=== PATIENT | male | born 1940 | race Hispanic/Latino ===

== ENCOUNTER 2020-12-04 14:55 | Emergency (ER) | payer MEDICARE ==
--- NOTE | 2020-12-04 16:03 | Event Note ---
ED Screening Note Date of service: 12/04/20 Time: 16:01 ED Screening Note: 80-year-old male patient with history of kidney stones and pancreatitis presents to the emergency department with complaints of abdominal pain, nausea, and vomiting worsening today. Patient states he underwent a CT scan earlier in the week and was diagnosed with a nonobstructive kidney stone. However, today he developed nausea and vomiting, prompting him to come to the emergency department. Patient states he was hospitalized for pancreatitis approximately 6 months ago. His pain is primarily localized to the epigastric and periumbilical area. Endorses alcohol use. Symptoms are somewhat reminiscent of prior pa ncreatitis diagnosis. Tachycardic in triage. General: Awake, appropriately interactive, no acute distress. Neck: Supple. Full range of motion intact. Cardiovascular: Normal peripheral perfusion. Pulmonary: No respiratory distress. Patient is speaking normally without use of accessory muscles. Skin: No apparent rashes or lesions. Neurological: No facial asymmetry. Speech is clear. Follows commands. Patient is alert and oriented. Musculoskeletal: Moves all four extremities spontaneously with normal range of motion. Psych: Cooperative. Appropriate mood and affect. I have greeted and performed a focused rapid initial assessment of this patient. A comprehensive ED assessment and evaluation of the patient, analysis of all test results, and completion of the medical decision-making process will be conducted by additional ED providers. This initial assessment/diagnostic orders/clinical plan/treatment(s) is/are subject to change based on patients health status, clinical progression and re-assessment. Further treatment and workup at subsequent clinical provider's discretion. Patient/guardian urged not to elope from the ED as their condition may be serious if not clinically assesse d and managed.
[2020-12-04 17:13] LABS: Bacteria,Urine 1+ /HPF (Negative); Bilirubin,Urine SM (Negative); Blood,Urine NEG (Negative); Color,Urine Amber (Yellow); Hyaline Casts,Urine 13 /LPF; Mucus,Urine 3+ /HPF
[2020-12-04 17:42] LABS: Basophils % (Auto) 0.1 % (0.0-1.8); Hematocrit 49.6 % (35.5-45.6); Hemoglobin 16.9 gm/dl (11.8-15.2); Lymphocytes # (Auto) 0.5 K/mm3 (1.2-5.4); Lymphocytes % (Auto) 5.5 % (13.4-35.0); Mean Corpuscular HGB Conc 34 % (32-34); Mean Corpuscular Volume 94 fl (84-94); Monocytes # (Auto) 0.6 K/mm3 (0.0-0.8); Monocytes % (Auto) 6.3 % (0.0-7.3); Platelet Count 159 K/mm3 (140-440); Red Cell Distribution Width 13.8 % (13.2-15.2)
[2020-12-04 17:44] LABS: Ictotest,Urine Negative (Negative)
[2020-12-04 17:51] LABS: Albumin 4.4 g/dL (3.9-5); Calcium 9.6 mg/dL (8.4-10.2)
[2020-12-04] MEDS ORDERED: MORPHINE 4 MG/1 ML INJ IV ONE (20:41)
[2020-12-04] MEDS ORDERED: ONDANSETRON 4 MG/2 ML INJ IV ONE (20:41)
[2020-12-04] MEDS ORDERED: SODIUM CHLORIDE 0.9% 1000 ML 500 ML IV ONE (20:41)
--- NOTE | 2020-12-04 20:42 | Emergency Department Report ---
ED General Adult HPI - General Chief complaint: Nausea/Vomiting/Diarrhea Stated complaint: VOMITING PUI?: No Time Seen by Provider: 12/04/20 20:32 Source: patient, RN notes reviewed Mode of arrival: Ambulatory Limitations: No Limitations - History of Present Illness Initial comments: The patient was evaluated in the emergency department for symptoms described in the history of present illness. He/she was evaluated in the context of the global COVID-19 pandemic, which necessitated consideration that the patient might be at risk for infection with the virus that causes COVID-19. Institutional protocols and algorithms that pertain to the evaluation of patients at risk for COVID-19 are in a state of rapid change based on i nformation released by regulatory bodies including the CDC and federal and state organizations. These policies and algorithms were followed during the patient's care in the emergency department. Please note that these policies, procedures and recommendations changed on a rapid basis. This is an 80-year-old gentleman. He is not known to myself previously. He is visiting from [place]. He reports a history of pancreatitis. He presents to the ER today with a complaint of diffuse abdominal pain, nausea, vomiting. He also has a history of cholecystectomy the distant past. Also reports a history of renal colic. Presents to the ER today with a complaint of supraumbilical/infra epigastric abdominal pain, with nausea vomiting, malaise. He has received his Covid vaccinations. Denies headache, neck pain, chest pain, shortness of breath, Covid symptomatology, testicular pain and urinary symptoms. So far, his abdominal pain is diffuse, increases with palpation, and does not really have any relieving factors. No testicular pain at this time. -: Gradual, hour(s) Location: abdomen Radiation: non-radiation Quality: other Consistency: other Improves with: other Worsens with: other - Related Data Previous Rx's Medication Instructions Recorded Last Taken Type Metoclopramide [Reglan] 10 mg PO QID PRN #30 tablet 12/04/20 Unknown Rx Pantoprazole [Protonix] 40 mg PO QDAY #30 tablet 12/04/20 Unknown Rx Allergies Allergy/AdvReac Type Severity Reaction Status Date / Time No Known Allergies Allergy Unverified 12/04/20 15:08 ED Review of Systems ROS: Stated complaint: VOMITING Other details as noted in HPI Constitutional: malaise, other (Denies loss of taste and smell). denies: fever Eyes: denies: eye discharge ENT: denies: epistaxis Respiratory: denies: shortness of breath Cardiovascular: denies: chest pain Gastrointestinal: abdominal pain, nausea, vomiting Genitourinary: denies: testicular pain Musculoskeletal: denies: back pain Neurological: weakness Hematological/Lymphatic: denies: easy bleeding ED Past Medical Hx - Past Medical History Previous Medical History?: Yes Hx Hypertension: Yes - Surgical History Past Surgical History?: Yes Additional Surgical History: knee surgery, GB - Medications Home Medications: Home Medications Medication Instructions Recorded Confirmed Last Taken Type Metoclopramide [Reglan] 10 mg PO QID PRN #30 tablet 12/04/20 Unknown Rx Pantoprazole [Protonix] 40 mg PO QDAY #30 tablet 12/04/20 Unknown Rx ED Physical Exam - General Limitations: No Limitations General appearance: alert, anxious, in distress, obese - Head Head exam: Present: atraumatic, normocephalic - Eye Eye exam: Present: normal appearance, EOMI. Absent: nystagmus - ENT ENT exam: Present: normal exam, normal orophraynx, mucous membranes moist, normal external ear exam - Neck Neck exam: Present: normal inspection, full ROM. Absent: tenderness, meningismus - Respiratory Respiratory exam: Present: normal lung sounds bilaterally. Absent: respiratory distress, wheezes, rales, rhonchi, stridor, decreased breath sounds - Cardiovascular Cardiovascular Exam: Present: normal rhythm, tachycardia, normal heart sounds. Absent: bradycardia, irregular rhythm, systolic murmur, diastolic murmur, rubs, gallop - GI/Abdominal GI/Abdominal exam: Present: soft, tenderness. Absent: distended, guarding, rebound, rigid, pulsatile mass - Rectal Rectal exam: Present: deferred - Extremities Exam Extremities exam: Present: normal inspection, full ROM, other (2+ pulses noted in the bilateral upper and lower extremities. There is no palpable cord. negative Homans sign. Muscular compartments are soft. The pelvis is stable.). Absent: pedal edema, calf tenderness - Back Exam Back exam: Present: normal inspection, full ROM. Absent: tenderness, CVA tenderness (R), CVA tenderness (L), paraspinal tenderness, vertebral tenderness - Neurological Exam Neurological exam: Present: alert, normal gait, other (No facial droop. Tongue midline. Extraocular movements intact bilaterally. Facial sensation intact to light touch in V1, V2, V3 distribution bilaterally. 5 and a 5 strength in 4 extremities. Sensation intact to light touch in 4 extremities.). Absent: motor sensory deficit - Psychiatric Psychiatric exam: Present: anxious - Skin Skin exam: Present: warm, dry, intact, normal color. Absent: rash ED Course Vital Signs 12/04/20 12/04/20 15:11 22:58 Temperature 98.1 F 98.4 F Pulse Rate 100 H 75 Respiratory 24 16 Rate Blood Pressure 153/93 Blood Pressure 137/68 [Left] O2 Sat by Pulse 95 100 Oximetry - Reevaluation(s) Reevaluation #1: 12/04/20 22:32 Heart rate in the 90s at this time. Patient drinking ice water. He is speaking on the cell phone and in no acute distress. Belly soft on repeat examination. CT scan abdomen pelvis did not demonstrate any emergent surgical condition, gastritis is suggested. At this point time, given history of sporadic alcohol use, and history of pancreatitis, I suspect alcohol induced gastritis, which is likely causing nausea and vomiting, and abdominal wall pain. Counseled patient to avoid consumption of Motrin, ibuprofen, Naprosyn, Aleve, a lcohol, heavy and spicy foods. Counseled patient to avoid consumption of alcohol. Counseled patient that he may follow-up with an outpatient GI physician. He states "I have already done this." Nevertheless, he endorses feeling improved, and is endorsing readiness for discharge. Elevated lactic acid is likely a type B lactic acidosis. 12/04/20 22:56 No active vomiting. Patient on cell phone. Patient has asked for a letter to be cleared for leisurely/recreational flight. I have instructed the patient that in the emergency room, we will rule out an emergent medical condition. However, I have informed the patient that we do not do medical clearance for flights and or for aviation pursuits. Patient is instructed that he may follow- up at an urgent care, primary care doctor's office, or at a local outpatient facility. During this conversation, nurse Denny Avalos is present. 12/05/20 00:23 Final reevaluation. Lactic acid cleared. Patient drinking without difficulty. Belly soft on repeat exam. He is speaking on his cell phone in no acute distress. Suitable for discharge with outpatient follow-up. ED Medical Decision Making - Lab Data Result diagrams: 12/04/20 16:52 12/04/20 16:52 Vital Signs 12/04/20 15:11 Temperature 98.1 F Pulse Rate 100 H Respiratory 24 Rate Blood Pressure 153/93 O2 Sat by Pulse 95 Oximetry Lab Results 12/04/20 12/04/20 12/04/20 Range/Units 16:29 16:52 16:52 WBC 9.8 (4.5-11.0) K/mm3 RBC 5.30 H (3.65-5.03) M/mm3 Hgb 16.9 H (11.8-15.2) gm/dl Hct 49.6 H (35.5-45.6) % MCV 94 (84-94) fl MCH 32 (28-32) pg MCHC 34 (32-34) % RDW 13.8 (13.2-15.2) % Plt Count 159 (140-440) K/mm3 Lymph % (Auto) 5.5 L (13.4-35.0) % [place] % (Auto) 6.3 (0.0-7.3) % Eos % (Auto) 0.0 (0.0-4.3) % Baso % (Auto) 0.1 (0.0-1.8) % Lymph # (Auto) 0.5 L (1.2-5.4) K/mm3 [place] # (Auto) 0.6 (0.0-0.8) K/mm3 Eos # (Auto) 0.0 (0.0-0.4) K/mm3 Baso # (Auto) 0.0 (0.0-0.1) K/mm3 Seg Neutrophils % 88.1 H (40.0-70.0) % Seg Neutrophils # 8.6 H (1.8-7.7) K/mm3 Sodium 136 L (137-145) mmol/L Potassium 4.5 (3.6-5.0) mmol/L Chloride 97.3 L (98-107) mmol/L Carbon Dioxide 25 (22-30) mmol/L Anion Gap 18 mmol/L BUN 31 H (9-20) mg/dL Creatinine 1.3 (0.8-1.3) mg/dL Estimated GFR 53 ml/min BUN/Creatinine Ratio 24 % Glucose 177 H (75-100) mg/dL Calcium 9.6 (8.4-10.2) mg/dL Magnesium 1.70 (1.7-2.3) mg/dL Total Bilirubin 1.30 H (0.1-1.2) mg/dL AST 51 H (5-40) units/L ALT 75 H (7-56) units/L Alkaline Phosphatase 80 (35-129) units/L Total Creatine Kinase (55-170) units/L Troponin T (0.00-0.029) ng/mL Total Protein 6.9 (6.3-8.2) g/dL Albumin 4.4 (3.9-5) g/dL Albumin/Globulin Ratio 1.8 % Lipase 14 (13-60) units/L Urine Color [place] (Yellow) Urine Turbidity Cloudy (Clear) Urine pH 5.0 (5.0-7.0) Ur Specific [place] 1.025 (1.003-1.030) Urine Protein 30 mg/dl (Negative) mg/dL Urine Glucose (UA) Neg (Negative) mg/dL Urine Ketones Neg (Negative) mg/dL Urine Blood Neg (Negative) Urine Nitrite Neg (Negative) Urine Bilirubin Sm (Negative) Urine Ictotest Negative (Negative) Urine Urobilinogen 4.0 (<2.0) mg/dL Ur Leukocyte Esterase Neg (Negative) Urine WBC (Auto) 6.0 (0.0-6.0) /HPF Urine RBC (Auto) 6.0 (0.0-6.0) /HPF U Epithel Cells (Auto) 1.0 (0-13.0) /HPF Urine Bacteria (Auto) 1+ (Negative) /HPF Hyaline Casts 13 /LPF Urine Mucus 3+ /HPF Plasma/Serum Alcohol (0-0.07) % 12/04/20 12/04/20 Range/Units 16:52 21:00 WBC (4.5-11.0) K/mm3 RBC (3.65-5.03) M/mm3 Hgb (11.8-15.2) gm/dl Hct (35.5-45.6) % MCV (84-94) fl MCH (28-32) pg MCHC (32-34) % RDW (13.2-15.2) % Plt Count (140-440) K/mm3 Lymph % (Auto) (13.4-35.0) % [place] % (Auto) (0.0-7.3) % Eos % (Auto) (0.0-4.3) % Baso % (Auto) (0.0-1.8) % Lymph # (Auto) (1.2-5.4) K/mm3 [place] # (Auto) (0.0-0.8) K/mm3 Eos # (Auto) (0.0-0.4) K/mm3 Baso # (Auto) (0.0-0.1) K/mm3 Seg Neutrophils % (40.0-70.0) % Seg Neutrophils # (1.8-7.7) K/mm3 Sodium (137-145) mmol/L Potassium (3.6-5.0) mmol/L Chloride (98-107) mmol/L Carbon Dioxide (22-30) mmol/L Anion Gap mmol/L BUN (9-20) mg/dL Creatinine (0.8-1.3) mg/dL Estimated GFR ml/min BUN/Creatinine Ratio % Glucose (75-100) mg/dL Calcium (8.4-10.2) mg/dL Magnesium 1.80 (1.7-2.3) mg/dL Total Bilirubin (0.1-1.2) mg/dL AST (5-40) units/L ALT (7-56) units/L Alkaline Phosphatase (35-129) units/L Total Creatine Kinase 144 (55-170) units/L Troponin T < 0.010 (0.00-0.029) ng/mL Total Protein (6.3-8.2) g/dL Albumin (3.9-5) g/dL Albumin/Globulin Ratio % Lipase (13-60) units/L Urine Color (Yellow) Urine Turbidity (Clear) Urine pH (5.0-7.0) Ur Specific [place] (1.003-1.030) Urine Protein (Negative) mg/dL Urine Glucose (UA) (Negative) mg/dL Urine Ketones (Negative) mg/dL Urine Blood (Negative) Urine Nitrite (Negative) Urine Bilirubin (Negative) Urine Ictotest (Negative) Urine Urobilinogen (<2.0) mg/dL Ur Leukocyte Esterase (Negative) Urine WBC (Auto) (0.0-6.0) /HPF Urine RBC (Auto) (0.0-6.0) /HPF U Epithel Cells (Auto) (0-13.0) /HPF Urine Bacteria (Auto) (Negative) /HPF Hyaline Casts /LPF Urine Mucus /HPF Plasma/Serum Alcohol < 0.01 (0-0.07) % - EKG Data -: EKG Interpreted by Ak EKG shows normal: sinus rhythm Rate: normal - EKG Data When compared to previous EKG there are: previous EKG unavailable 12/04/20 21:58 No prior EKG available for comparison. EKG interpreted at 20: 50 Sinus rhythm, 87 bpm, normal P wave axis, left axis deviation, left anterior fascicular block, left ventricular hypertrophy, motion artifact, QTC 446 ms, first-degree AV block, nonspecific interventricular conduction delay, abnormal EKG, not a STEMI, no prior for comparison - Radiology Data Radiology results: pending, report reviewed, [place] [address] Cat Scan Report Signed Patient: PRECIOUS ALCARAZ MR#: [id number] : 1940 Acct:[id number] Age/Sex: 80 / M ADM Date: 12/04/20 Loc: ED Attending Dr: Ordering Physician: MARIE BETHEA MD Date of Service: 12/04/20 Procedure(s): CT angio abdomen pelvis Accession Number(s): [id number] cc: MARIE BETHEA MD CTA ABDOMEN AND PELVIS WITHOUT AND WITH IV CONTRAST INDICATION: acute abd pain n/v. TECHNIQUE: Axial CT images were obtained through the abdomen and pelvis before and after after injection of IV contrast. 3 plane MIP reconstructions were produced. All CT scans at this location are performed using CT dose reduction for ALARA by means of automated exposure control. COMPARISON: None available. FINDINGS: Aorta: Mild atherosclerotic calcification. Caliber is normal. No acute abnormality. Renal arteries: No acute abnormality. There are 2 left renal arteries arising from the aorta. No significant atherosclerotic calcification. No acute abnormality. Celiac artery: No acute abnormality. Superior mesenteric artery: No acute abnormality. Inferior mesenteric artery: No acute abnormality. Right iliac arteries: No acute abnormality. Left iliac arteries: No acute abnormality. Additional Findings: There is mild hepatic stea tosis. There are couple punctate nonobstructing calyceal stones in the kidneys. No acute solid organ abnormality is seen. There is mild stranding around the distal stomach/duodenal bulb. Upper GI tract is otherwise unremarkable. No colonic inflammation is seen. Bladder is unremarkable. No free fluid or adenopathy. Skeletal Structures: No acute osseous abnormality. IMPRESSION: 1. No acute/significant vascular findings. 2. There is mild stranding around the distal stomach and duodenum which could be seen in the setting of gastritis or duodenitis. Peptic ulcer disease is also a consideration. 3. Additional, incidental findings as above. Signer Name: Elvin Toribio MD Signed: 12/04/2020 9:52 PM Workstation Name: [id number] Transcribed By: SW Dictated By: Elvin Toribio MD Electronically Authenticated By: Elvin Toribio MD Signed Date/Time: 12/04/202151 DD/ 47 Critical care attestation.: If time is entered above; I have spent that time in minutes in the direct care of this critically ill patient, excluding procedure time. ED Disposition Clinical Impression: Abdominal pain Qualifiers: Abdominal location: unspecified location Qualified Code(s): R10.9 - Unspecified abdominal pain Disposition: DC-01 TO HOME OR SELFCARE Is pt being admited?: No Does the pt Need Aspirin: No Condition: Stable Instructions: Gastritis, Adult Additional Instructions: As we discussed, patient does not appear to have an emergent medical condition at this time which would preclude discharge, and which should not prevent him from following up with an outpatient primary care doctor and/or internist. We suspect that patient symptoms are likely coming from presumed alcoholic gastritis, or undifferentiated gastritis. We recommend the patient abstain/avoid consumption of alcohol, tobacco, smoke products, heavy and spicy foods, medications such as Motrin, ibuprofen, Naprosyn, Aleve, and aspirin. Please do not take metformin medication for the next 2 days, if patient takes this medication. Please take the pain medication, nausea medication as needed and directed. Please follow-up with an outpatient primary care doctor or internist within the next 5 to 7 days for repeat checkup/evaluation. Patient may alternatively follow-up at a local outpatient urgent care center, or outpatient primary care center, if he needs/requires a letter for flight clearance. For the patient's convenience, Dr. Perez is a local internist. Dr. Francia Paula is a local primary care doctor. Patient had laboratory studies and CT scan today which did not demonstrate an emergent medical condition. However, nonemergent incidental abnormal findings were noted, and a primary care doctor or internist should contact our medical records department to obtain copies of diagnostic laboratory studies and radiology studies, to follow-up on nonemergent incidental abnormal findings. Please return to the emergency room right away with new pain, worsened pain, migration of pain, projectile vomiting, change in mental status, confusion, inability to tolerate liquid feeds, new, worsened or different symptoms not present on the initial emergency room evaluation. Prescriptions: Pantoprazole [Protonix] 40 mg PO QDAY #30 tablet Metoclopramide [Reglan] 10 mg PO QID PRN #30 tablet PRN Reason: Nausea Referrals: CRISTINA PAULA MD [Staff Physician] - 3-5 Days [facility] [Provider Group] - 3-5 Days
--- NOTE | 2020-12-04 21:57 | Cat Scan Report ---
CTA ABDOMEN AND PELVIS WITHOUT AND WITH IV CONTRAST INDICATION: acute abd pain n/v. TECHNIQUE: Axial CT images were obtained through the abdomen and pelvis before and after after injection of IV c ontrast. 3 plane MIP reconstructions were produced. All CT scans at this location are performed using CT dose reduction for ALARA by means of automated exposure control. COMPARISON: None available. FINDINGS: Aorta: Mild atherosclerotic calcification. Caliber is normal. No acute abnormality. Renal arteries: No acute abnormality. There are 2 left renal arteries arising from the aorta. No sign ificant atherosclerotic calcification. No acute abnormality. Celiac artery: No acute abnormality. Superior mesenteric artery: No acute abnormality. Inferior mesenteric artery: No acute abnormality. Right iliac arteries: No acute abnormality. Left iliac arteries: No acute abnormality. Additional Findings: There is mild hepatic steatosis. There are couple punctate nonobstructing calyce al stones in the kidneys. No acute solid organ abnormality is seen. There is mild stranding around th e distal stomach/duodenal bulb. Upper GI tract is otherwise unremarkable. No colonic inflammation is seen. Bladder is unremarkable. No free fluid or adenopathy. Skeletal Structures: No acute osseous abnormality. IMPRESSION: 1. No acute/significant vascular findings. 2. There is mild stranding around the distal stomach and duodenum which could be seen in the setting of gastritis or duodenitis. Peptic ulcer disease is also a consideration. 3. Additional, incidental findings as above. Signer Name: Elvin Toribio MD Signed: 12/04/2020 9:52 PM Workstation Name: [id number]
[2020-12-04] MEDS ORDERED: LACTATED RINGERS 1,000 ML IV ONE (22:04)
[2020-12-04] MEDS ORDERED: SUCRALFATE 1 GM/10 ML ORAL LIQD PO ONE (22:04)
[2020-12-04] MEDS ORDERED: PANTOPRAZOLE 40 MG INJ IV ONE (22:04)
[2020-12-05 03:54] VITALS: BP 128/72
--- NOTE | 2020-12-07 09:48 | Electrocardiograph Report ---
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
== END 2020-12-05 01:00 | disposition home or self-care (01) ==
LOC: ED 14:55
DX: R10.13 Epigastric pain (principal); R11.2 Nausea with vomiting, unspecified; I10 Essential (primary) hypertension; Z98.890 Other specified postprocedural states; Z79.899 Other long term (current) drug therapy
CPT/HCPCS: 36415; 74174; 80053; 81001; 82140; 82550; 83690; 83735; 84484; 85025; 93005; 96361; 96374; 96375; 99284; C9113; J2270; J2405; J7030; J7120; Q9967; 80320; G0480